=== PATIENT | female | born 2000 | race Two or more races ===

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

== ENCOUNTER 2019-10-16 22:43 | Emergency (ER) | payer SELFPAY ==
--- NOTE | 2019-10-16 23:37 | ER Document Report ---
ED Medical Screen (RME) - General Chief Complaint: Shortness Of Breath Stated Complaint: SHORTNESS OF BREATH Time Seen by Provider: 10/16/19 23:30 Notes: She has a 19-year-old female who presents emergency department with a chief complaint of shortness of breath. Patient states that she has been short of breath for the past week. Patient states that she feels like she cannot get a good deep breath in. Patient also states that she may have a little bit of anxiety due to her boyfriend being in the and going to move away for the next 3 years. Exam: Diminished expiratory breath sounds noted in all lung montiel. I have greeted and performed a rapid initial assessment of this patient. A comprehensive ED assessment and evaluation of the patient, analysis of test results and completion of medical decision making process will be conducted by an additional ED providers. TRAVEL OUTSIDE OF THE [place] IN LAST 30 DAYS: No - Related Data Allergies/Adverse Reactions: No Known Allergies Allergy (Unverified 01/03/17 17:01) Past Medical History - Social History Chew tobacco use (# tins/day): No Frequency of alcohol use: None Drug Abuse: None Renal/ Medical History: Denies: Hx Peritoneal Dialysis Physical Exam - Vital signs Vitals: Temp Pulse Resp BP Pulse Ox 98.2 F 97 18 125/75 100 10/16/19 23:22 10/16/19 23:22 10/16/19 23:22 10/16/19 23:22 10/16/19 23:22 Course - Vital Signs Vital signs: Temp Pulse Resp BP Pulse Ox 98.2 F 97 18 125/75 100 10/16/19 23:22 10/16/19 23:22 10/16/19 23:22 10/16/19 23:22 10/16/19 23:22
[2019-10-17 00:16] LABS: ABSOLUTE BASOPHILS # (AUTO) 0.1 10^3/uL (0.0-0.2); ABSOLUTE EOSINOPHILS # (AUTO) 0.1 10^3/uL (0.0-0.6); ABSOLUTE LYMPHOCYTES (AUTO) 4.2 10^3/uL (0.5-4.7); ABSOLUTE MONOCYTES (AUTO) 0.7 10^3/uL (0.1-1.4); ABSOLUTE NEUT (AUTO) 5.5 10^3/uL (1.7-8.2); BASOPHILS % (AUTO) 0.6 % (0-2); EOSINOPHILS % (AUTO) 1.4 % (0-6); HEMOGLOBIN 14.5 g/dL (12.0-15.5); LYMPHOCYTES % (AUTO) 39.2 % (13-45); MEAN CORPUSCULAR HEMOGLOBIN 30.7 pg (27.0-33.4); MEAN CORPUSCULAR HGB CONC 35.3 g/dL (32.0-36.0); MEAN CORPUSCULAR VOLUME 87 fl (80-97); MONOCYTES % (AUTO) 6.8 % (3-13); PLATELET COUNT 341 10^3/uL (150-450); RED BLOOD COUNT 4.72 10^6/uL (3.72-5.28); RED CELL DISTRIBUTION WIDTH 13.2 % (11.5-14.0); TOTAL CELLS COUNTED % (AUTO) 100 %; WHITE BLOOD COUNT 10.6 10^3/uL (4.0-10.5)
--- NOTE | 2019-10-17 00:17 | RADIOLOGY REPORT (SQ) ---
CLINICAL HISTORY: shortness of breath COMPARISON: None. TECHNIQUE: XR CHEST 2 VIEWS 10/16/2019 11:35 PM CREDIT OFFICER FINDINGS: Cardiac silhouette is normal in size. Lungs are clear without consolidation, atelectasis, mass or edema. There is no pleural effusion. There is no pneumothorax. There are no acute osseous findings. IMPRESSION: Clear lungs.
[2019-10-17 00:30] LABS: ALBUMIN 4.3 g/dL (3.5-5.0); ALKALINE PHOSPHATASE 51 U/L (38-126); ANION GAP 9 (5-19); ASPARTATE AMINO TRANSFERASE 32 U/L (14-36); BILIRUBIN,DIRECT 0.3 mg/dL (0.0-0.4); BILIRUBIN,TOTAL 0.4 mg/dL (0.2-1.3); BLOOD UREA NITROGEN 13 mg/dL (7-20); CALCIUM 9.6 mg/dL (8.4-10.2); CARBON DIOXIDE 26 mmol/L (22-30); CHLORIDE 104 mmol/L (98-107); GLUCOSE 104 mg/dL (75-110); POTASSIUM 4.1 mmol/L (3.6-5.0); TOTAL PROTEIN 7.8 g/dL (6.3-8.2)
[2019-10-17] MEDS: IPRATROPIUM/ALBUTEROL 0.5-2.5 MG/3 ML AMPUL NEB ONE ×2 (00:35→00:38)
--- NOTE | 2019-10-17 00:47 | ER Document Report ---
ED General - General Chief Complaint: Shortness Of Breath Stated Complaint: SHORTNESS OF BREATH Time Seen by Provider: 10/16/19 23:30 Mode of Arrival: Ambulatory Information source: Patient Notes: 19-year-old female arrives with her mother with chief complaint of having shortness of breath especially when she thinks about her fimason who is getting ready to leave in March for a high security overseas job for 3 years. She has known this man for around 5 months and she was quite upset about this person leaving. Patient has had a prior history of anxiety attacks according to her mother. Patient denies any hemoptysis or productive cough or anterior chest pain or trauma. She denies any and yet she is sexually active without using control. Patient denies any vaginal discharge or dysuria or abdominal pain or back pain or cephalgia TRAVEL OUTSIDE OF THE [place] IN LAST 30 DAYS: No - HPI Onset: Last week Onset/Duration: Sudden Quality of pain: Other - Positive headache Severity: Mild Pain Level: Denies Associated symptoms: Shortness of breath Exacerbated by: Deep breathing Relieved by: Remaining still Similar symptoms previously: No Recently seen / treated by doctor: No - Related Data Allergies/Adverse Reactions: No Known Allergies Allergy (Unverified 01/03/17 17:01) Past Medical History - General Information source: Patient - Social History Smoking Status: Former Smoker Cigarette use (# per day): No Chew tobacco use (# tins/day): No Smoking Education Provided: No Frequency of alcohol use: None Drug Abuse: None Lives with: Family Family History: None Patient has suicidal ideation: No Patient has homicidal ideation: No Renal/ Medical History: Denies: Hx Peritoneal Dialysis Review of Systems - Review of Systems Constitutional: No symptoms reported EENT: No symptoms reported Cardiovascular: No symptoms reported Respiratory: See HPI, Short of breath Gastrointestinal: No symptoms reported Genitourinary: No symptoms reported Female Genitourinary: No symptoms reported Musculoskeletal: No symptoms reported Skin: No symptoms reported Hematologic/Lymphatic: No symptoms reported Neurological/Psychological: See HPI, Headaches Physical Exam - Vital signs Vitals: Temp Pulse Resp BP Pulse Ox 98.2 F 97 18 125/75 100 10/16/19 23:22 10/16/19 23:22 10/16/19 23:22 10/16/19 23:22 10/16/19 23:22 Interpretation: Normal - General General appearance: Alert In distress: None - HEENT Head: Normocephalic Eyes: Normal Conjunctiva: Normal Cornea: Normal Extraocular movements intact: Yes Eyelashes: Normal Sinus: Normal Nasal: Normal Pharynx: Normal Neck: Thyromegally, Other - Versus fat pad anterior neck - Respiratory Respiratory status: No respiratory distress Chest status: Nontender Breath sounds: Normal Chest palpation: Normal - Cardiovascular Rhythm: Regular Heart sounds: Normal auscultation Murmur: No Friction rub: No Serena's crunch: No - Abdominal Inspection: Normal Distension: No distension Bowel sounds: Normal Tenderness: Nontender Organomegaly: No organomegaly - Back Back: Normal - Extremities General upper extremity: Normal inspection General lower extremity: Normal inspection - Neurological Neuro grossly intact: Yes Cognition: Normal Orientation: AAOx4 Catie Coma Scale Eye Opening: Spontaneous Catie Coma Scale Verbal: Oriented Speech: Normal Cranial nerves: Normal Cerebellar coordination: Normal Motor strength normal: LUE, RUE, LLE, RLE - Psychological Associated symptoms: Normal affect - Skin Skin Temperature: Warm Skin Moisture: Dry Course - Vital Signs Vital signs: Temp Pulse Resp BP Pulse Ox 98.2 F 97 18 125/75 100 10/16/19 23:22 10/16/19 23:22 10/16/19 23:22 10/16/19 23:22 10/16/19 23:22 - Laboratory Result Diagrams: 10/16/19 23:57 10/16/19 23:57 Laboratory results interpreted by me: 10/16/19 23:57 WBC 10.6 H Critical Care Note - Critical Care Note Total time excluding time spent on procedures (mins): 90 Comments: Patient's mother takes BuSpar and Xanax as needed for anxiety and depression and I will write for similar medicines for this patient. This appears to be reactive depression and anxiety. Discharge - Discharge Clinical Impression: Anxiety, Reactive depression (situational) Condition: Good Disposition: HOME, SELF-CARE Additional Instructions: Follow-up with personal doctor this month return to ER as needed take medicines as directed Prescriptions: Buspirone HCl 15 mg PO DAILY #30 tablet Alprazolam [Xanax] 1 mg PO HSP PRN #10 tablet PRN Reason: Anxiety Forms: Return to Work
[2019-10-17 01:27] LABS: APPEARANCE,URINE SLIGHTLY-CLOUDY; BILIRUBIN,URINE NEGATIVE (NEGATIVE); COLOR,URINE YELLOW; GLUCOSE, URINE NEGATIVE (NEGATIVE); KETONES,URINE NEGATIVE (NEGATIVE); LEUKOCYTE ESTERASE,URINE NEGATIVE (NEGATIVE); NITRITE,URINE NEGATIVE (NEGATIVE); PROTEIN,URINE NEGATIVE (NEGATIVE); URINE SPECIFIC GRAVITY 1.026; UROBILINOGEN,URINE NEGATIVE mg/dL (<2.0)
[2019-10-17] MEDS ORDERED: LORAZEPAM INJ 2 MG/1 ML VIAL IM ONE (01:36)
[2019-10-17 02:11] VITALS: BP 131/67
--- NOTE | 2019-10-17 10:46 | EKG REPORT ---
SEVERITY:- NORMAL ECG - SINUS RHYTHM : Confirmed by: Satya Hamlin 17-Oct-2019 10:44:34
== END 2019-10-17 01:50 | disposition home or self-care (01) ==
LOC: ER 22:43
DX: F41.9 Anxiety disorder, unspecified (principal); F32.89 Other specified depressive episodes; R06.02 Shortness of breath; Z87.891 Personal history of nicotine dependence
CPT/HCPCS: 36415; 71046; 80053; 81001; 81025; 83735; 84443; 85025; 85379; 93005; 93010; J2060; J7620

== ENCOUNTER → 2019-10-23 | Outpatient (CLI) | payer OTHER ==
[2019-10-23 11:37] LABS: ABSOLUTE BASOPHILS # (AUTO) 0.1 10^3/uL (0.0-0.2); ABSOLUTE EOSINOPHILS # (AUTO) 0.1 10^3/uL (0.0-0.6); ABSOLUTE LYMPHOCYTES (AUTO) 3.1 10^3/uL (0.5-4.7); ABSOLUTE MONOCYTES (AUTO) 0.5 10^3/uL (0.1-1.4); ABSOLUTE NEUT (AUTO) 5.1 10^3/uL (1.7-8.2); BASOPHILS % (AUTO) 0.6 % (0-2); EOSINOPHILS % (AUTO) 1.4 % (0-6); HEMATOCRIT 42.2 % (36.0-47.0); HEMOGLOBIN 15.1 g/dL (12.0-15.5); LYMPHOCYTES % (AUTO) 35.1 % (13-45); MEAN CORPUSCULAR HGB CONC 35.7 g/dL (32.0-36.0); MEAN CORPUSCULAR VOLUME 87 fl (80-97); MONOCYTES % (AUTO) 6.1 % (3-13); PLATELET COUNT 334 10^3/uL (150-450); RED BLOOD COUNT 4.88 10^6/uL (3.72-5.28); RED CELL DISTRIBUTION WIDTH 13.3 % (11.5-14.0); SEGMENTED NEUTROPHILS % (AUTO) 56.8 % (42-78); TOTAL CELLS COUNTED % (AUTO) 100 %
[2019-10-23 12:06] LABS: IRON 94.3 ug/dL (37-170)
[2019-10-23 12:35] LABS: FREE T3 3.43 pg/mL (2.77-5.27); FREE T4 (FREE THYROXINE) 1.12 ng/dL (0.78-2.19)
[2019-10-23 12:52] LABS: FERRITIN 20.5 ng/mL (6.2-137.0)
== END ==
LOC: CCC 10:51
DX: Z00.00 Encounter for general adult medical examination without abnormal findings (principal)
CPT/HCPCS: 36415; 82728; 83540; 84439; 84466; 84481; 85025